=== PATIENT | female | born 1985 | race Hispanic/Latino ===

== ENCOUNTER 2019-05-19 01:25 | Emergency (ER) | payer OTHER ==
[2019-05-19] MEDS ORDERED: KETOROLAC TROMETHAMINE 30MG/ML ONE (01:51)
[2019-05-19] MEDS ORDERED: CLINDAMYCIN 600 MG/D5% WATER 50 ML IV ONE (01:51)
[2019-05-19] MEDS ORDERED: SODIUM CHLORIDE 0.9% 1000ML 1,000 ML IV ONE (01:51)
[2019-05-19 01:55] LABS: BASOPHILS % (AUTO) 0.7 % (0.0-5.0); EOSINOPHILS % (AUTO) 2.9 % (0.0-8.0); LYMPHOCYTES % (AUTO) 30.8 % (21.0-51.0); MEAN CORPUSCULAR HEMOGLOBIN 29.9 pg (27.0-33.0); MEAN CORPUSCULAR HGB CONC 33.5 g/dL (32.0-36.0); MEAN CORPUSCULAR VOLUME 89.4 fL (79-99); MONOCYTES % (AUTO) 8.2 % (3.0-13.0); NEUTROPHILS % (AUTO) 57.4 % (40.0-77.0); NUCLEATED RED BLOOD CELLS 0.1 % (0.0-0.19); PLATELET COUNT (AUTO) 360 K/uL (130-400); RED BLOOD CELL COUNT(AUTO) 4.14 MIL/uL (4.00-5.50); RED CELL DISTRIBUTION WIDTH 13.3 % (11.0-15.5); WHITE BLOOD COUNT (AUTO) 10.2 K/uL (4.8-10.8)
[2019-05-19 02:00] LABS: APPEARANCE,URINE Clear (CLEAR); BILIRUBIN,URINE Negative (NEGATIVE); COLOR,URINE Yellow (YELLOW); GLUCOSE, URINE (UA) Negative (NEGATIVE); KETONES,URINE Negative (NEGATIVE); LEUKOCYTE ESTERASE ,URINE Negative (NEGATIVE); NITRATE,URINE Negative (NEGATIVE); OCCULT BLOOD,URINE Large (NEGATIVE); PROTEIN,URINE Trace mg/dL (NEGATIVE)
[2019-05-19 02:03] LABS: HCG,QUAL RESULT NEGATIVE (NEGATIVE)
[2019-05-19 02:07] LABS: INR 0.97 (0.85-1.15); PROTHROMBIN TIME 10.2 SEC (9.6-11.6)
[2019-05-19 02:09] LABS: BACTERIA,URINE None Seen /HPF (None Seen); WBC,URINE None Seen /HPF (0-1); YEAST,URINE BUDDING Rare /HPF (None Seen)
[2019-05-19 02:10] LABS: ALBUMIN 3.7 g/dL (3.5-5.0); BILIRUBIN,TOTAL 0.2 mg/dL (0.2-1.0); CRP QUANTITATIVE 68.5 mg/L (0.00-9.0); TOTAL PROTEIN, SERUM 8.3 g/dL (6.0-8.3)
[2019-05-19 02:10] LABS: MUCUS,URINE Few LPF (None Seen); SQUAMOUS EPITHELIAL CELL,UR Rare /HPF (0-2)
[2019-05-19 02:11] LABS: POTASSIUM 2.9 mmol/L (3.5-5.1)
[2019-05-19] MEDS ORDERED: POTASSIUM BICARB/CIT AC 25 MEQ TABLET.EFF ONE (02:13)
[2019-05-19 03:14] LABS: ERYTHROCYTE SEDIMENTATION RATE 43 MM/HR (0-20)
[2019-05-19] MEDS ORDERED: TETANUS/DIPHTHERIA TOXOID [ADULT] 0.5 ML VIAL IM ONE (03:22)
[2019-05-19] MEDS ORDERED: VALACYCLOVIR HCL 500 MG TABLET ONE (03:52)
== END 2019-05-19 04:05 | disposition home or self-care (01) ==
LOC: EDH 01:25
DX: B00.89 Other herpesviral infection (principal); I89.1 Lymphangitis; J45.909 Unspecified asthma, uncomplicated; Z88.2 Allergy status to sulfonamides
CPT/HCPCS: 36415; 73140; 80053; 81001; 81025; 85025; 85610; 85651; 85730; 86140; 87040 ×2; 90471; 90714; 96365; 96375; 99285; J1885; J3490; J7030

== ENCOUNTER 2020-12-29 00:40 | Emergency (ER) | payer OTHER ==
[~2020-12-29] VITALS: Ht 154.9 cm; Wt 87.1 kg
[2020-12-29] MEDS ORDERED: TETRACAINE HCL 0.5% 4 ML OPHTH SOLN OP ONE (02:00)
[2020-12-29] MEDS ORDERED: FLUORESCEIN SODIUM 1 STRIP STRIP OP SCH (02:00)
[2020-12-29] MEDS ORDERED: ERYTHROMYCIN BASE 0.5% OPHTH OINT 1 GM TUBE OU SCH (03:00)
[2020-12-29] MEDS ORDERED: ERYTHROMYCIN BASE 0.5% OPHTH OINT 1 GM TUBE ONE (03:21)
[2020-12-29 03:31] VITALS: BP 119/67
== END 2020-12-29 03:32 | disposition home or self-care (01) ==
LOC: EDH 00:40
DX: H10.32 Unspecified acute conjunctivitis, left eye (principal); Z88.2 Allergy status to sulfonamides

== ENCOUNTER 2022-01-02 08:38 | Emergency (ER) | payer OTHER ==
[~2022-01-02] VITALS: Ht 152.4 cm; Wt 81.6 kg
[2022-01-02 08:42] VITALS: BP 134/90
[2022-01-02] MEDS ORDERED: NEOMY SULF/BACITRA/POLYMYXIN B 1 EACH PACKET TP ONE (09:14)
[2022-01-02] MEDS ORDERED: IBUP-2070 PO (09:24)
[2022-01-02] MEDS ORDERED: HYDROCODONE/ACETAMINOPHEN 10/325 MG TAB PO ONE (09:30)
[2022-01-02] MEDS ORDERED: CLINDAMYCIN 150 MG CAP PO ONE (09:30)
[2022-01-02] MEDS ORDERED: MUPIROCIN OINTMENT 22 GM TUBE TP SCH (09:30)
== END 2022-01-02 09:53 | disposition home or self-care (01) ==
LOC: EDH 08:38
DX: L08.9 Local infection of the skin and subcutaneous tissue, unspecified (principal); Z88.2 Allergy status to sulfonamides